=== PATIENT | female | born 1995 | race Caucasian/White ===

== ENCOUNTER 2016-08-01 21:48 | Emergency (ER) | payer SELFPAY ==
[~2016-08-01] VITALS: Ht 157.5 cm; Wt 47.6 kg
[2016-08-01 22:00] VITALS: BP 121/74
[2016-08-01] MEDS ORDERED: HYDR25TA PO (23:06)
[2016-08-01] MEDS ORDERED: PRED50TA PO (23:06)
[2016-08-01] MEDS ORDERED: FAMO-63 PO (23:06)
--- NOTE | 2016-08-01 23:06 | PHYS DOC ---
Past Medical History Past Medical History: No Pertinent History Past Surgical History: No Surgical History Alcohol Use: None Drug Use: None Adult General Chief Complaint Chief Complaint: SKIN RASH/ABSCESS [facility] HPI Patient is a 21 year old female who presents with an itchy rash to entire body for one month. Reports has used Bendryl cream and has taken OTC Bendaryl without relief. No other members of house have rash, no known exposure. Review of Systems Review of Systems Constitutional: Denies fever or chills Eyes: Denies change in visual acuity, redness, or eye pain [] HENT: Denies nasal congestion or sore throat Respiratory: Denies cough or shortness of breath Cardiovascular: No additional information not addressed in HPI GI: Denies abdominal pain, nausea, vomiting, bloody stools or diarrhea : Denies dysuria or hematuria Musculoskeletal: Denies back pain or joint pain [] Integument: Rash for one month Neurologic: Denies headache, focal weakness or sensory changes [] Endocrine: Denies polyuria or polydipsia [] Allergies Allergies Allergies Coded Allergies Type Severity Reaction Last Updated Verified No Known Drug Allergies 08/01/16 No Physical Exam Physical Exam Constitutional: Well developed, well nourished, no acute distress, non-toxic appearance. [] HENT: Normocephalic, atraumatic, bilateral external ears normal, oropharynx moist, no oral exudates, nose normal. [] Eyes: PERRLA, EOMI, conjunctiva normal, no discharge. [] Neck: Normal range of motion, no tenderness, supple, no stridor. [] Cardiovascular:Heart rate regular rhythm, no murmur [] Lungs & Thorax: Bilateral breath sounds clear to auscultation [] Abdomen: Bowel sounds normal, soft, no tenderness, no masses, no pulsatile masses. [] Skin: Papular rash to arms, legs, hands, feet, trunk, neck, and face. No pustules or cellulitis, no linear formation or between toes or fingers. excoriation of various stages. Rash more prodominant at ankles. feet, forearms, hands, and back of neck. Back: No tenderness, no CVA tenderness. [] Extremities: No tenderness, no cyanosis, no clubbing, ROM intact, no edema. [] Neurologic: Alert and oriented X 3, normal motor function, normal sensory function, no focal deficits noted. [] Psychologic: Affect normal, judgement normal, mood normal. [] Current Patient Data Vital Signs Vital Signs Date Time Temp Pulse Resp B/P Pulse Ox O2 Delivery O2 Flow Rate FiO2 08/01/16 22:00 97.8 82 17 99 Room Air 97.8 EKG EKG [] Radiology/Procedures Radiology/Procedures [] Impressions: 1. COntact dermatitis Course & Med Decision Making Course & Med Decision Making Pertinent Labs and Imaging studies reviewed. (See chart for details) [] Dragon Disclaimer Dragon Disclaimer This electronic medical record was generated, in whole or in part, using a voice recognition dictation system. Departure Departure Impression: Primary Impression: Contact dermatitis Disposition: HOME, SELF-CARE Condition: STABLE Referrals: NO PCP (PCP) Patient Instructions: Contact Dermatitis, [id number] Additional Instructions: Take medication as prescribed. Follow up with primary doctor in 1-2 days. Return if problems or concerns Scripts Hydroxyzine Hcl 25 Mg Tablet1 Tab PO TID PRN ITCHING #30 TAB Prov:ADE GEE APRN 08/01/16 Famotidine (Pepcid)20 Mg [id number] Mg PO BID #20 TAB Prov:ADE GEE APRN 08/01/16 Prednisone 50 Mg [id number] Mg PO DAILY 5 Days Prov:ADE GEE APRN 08/01/16 ADE GEE APRN Aug 01, 2016 23:06
== END 2016-08-01 23:20 | disposition home or self-care (01) ==
LOC: ER 21:48
DX: L25.9 Unspecified contact dermatitis, unspecified cause (principal)
CPT/HCPCS: 99283